=== PATIENT | male | born 1960 | race Caucasian/White ===

== ENCOUNTER 2019-12-06 08:49 | Emergency (ER) | payer MEDICARE, OTHER ==
[2019-12-06] MEDS ORDERED: Ketorolac Tromethamine 30 MG/ML VIAL ONE (10:32)
[2019-12-06 10:40] LABS: #Basophils 0.1 thou/uL (0.0-0.2); #Eosinphils 0.6 thou/uL (0.0-0.7); #Lymphocytes 2.2 thou/uL (1.20-3.40); #Monocytes 0.8 thou/uL (0.11-0.59); #Neutrophils 6.8 thou/uL (1.40-6.50); %Basophils 0.7 % (0.0-1.0); %Monocytes 7.8 % (0.0-10.0); %Neutrophils 64.6 % (42.0-75.0); Mean Corpuscular HGB CONC 34.3 g/dL (32.0-36.0); Mean Corpuscular Volume 90.4 fL (78.0-98.0); Mean Platelet Volume 8.5 fL (7.4-10.4); Platelet Count 218 thou/uL (130-400); RBC Distribution Width 12.7 % (11.5-14.5); White Blood Cell (WBC) Count 10.6 thou/uL (4.8-10.8)
--- NOTE | 2019-12-06 10:48 | CT ---
CT BRAIN WITHOUT CONTRAST: HISTORY: Fall, headache FINDINGS: No evidence of acute infarct, hemorrhage, midline shift or abnormal extra-axial fluid collections is seen. The ventricular size is appropriate and the basilar cisterns are patent. The bony calvarium is intact. The mastoid air cells are well aerated. There is mild mucosal disease in the paranasal si nuses. IMPRESSION: No CT evidence of acute intracranial process.
[2019-12-06 10:56] LABS: ALT (SGPT) 27 U/L (8-55); AST (SGOT) 17 U/L (5-34); Albumin 4.6 g/dL (3.5-5.0); Alkaline Phosphatase 86 U/L (40-110); Anion Gap 14 mmol/L (10-20); BUN (Urea Nitrogen) 10 mg/dL (8.4-25.7); Bilirubin, Total 0.4 mg/dL (0.2-1.2); Calc. Creatinine Clearance 0 mL/min (70-130); Carbon Dioxide 27 mmol/L (22-29); Chloride 103 mmol/L (98-107); Estimated GFR-MDRD 82; Globulin 2.8 g/dL (2.4-3.5); Glucose 137 mg/dL (70-105); Potassium 4.2 mmol/L (3.5-5.1); Protein, Total 7.4 g/dL (6.0-8.3); Sodium 140 mmol/L (136-145)
--- NOTE | 2019-12-06 10:57 | RAD ---
Lumbar spine 3 views HISTORY: Low back pain. FINDINGS: There are 5 lumbar type vertebrae. Bilateral pedicle screws and vertical rods at the L4-5 l evel. No. Hardware lucency. Other pedicles are intact. Vertebral body heights and alignment are maintained. Osteophytosis throughout the vertebral bodies and facets. Discogenic endplate changes and disc space narrowing most pronounced at the lowest 2 levels. There is calcification over the arterial structures. IMPRESSION: Postoperative and degenerative changes of the lumbar spine. No evidence of acute compress ion fracture. Atherosclerosis.
== END 2019-12-06 11:35 | disposition home or self-care (01) ==
LOC: ERS 08:49
DX: M54.5 Low back pain (principal); E11.9 Type 2 diabetes mellitus without complications; F17.210 Nicotine dependence, cigarettes, uncomplicated; I10 Essential (primary) hypertension; W19.XXXA Unspecified fall, initial encounter
CPT/HCPCS: 36415; 70450; 72100; 80053; 85025; 93005; 96361; 96374; J1885